=== PATIENT | female | born 2000 | race Caucasian/White ===

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

== ENCOUNTER 2019-03-04 03:53 | Emergency (ER) | payer OTHER ==
[~2019-03-04] VITALS: Ht 167.6 cm; Wt 99.3 kg
[~2019-03-04 03:53] MED LIST changes: +CEPH-443 PO
[2019-03-04 03:57] VITALS: BP 154/75; PULSE 72; RESP 18; Ht 167.6 cm; Wt 99.3 kg
--- NOTE | 2019-03-04 04:08 | ERD ---
ER Documentation Chief Complaint Chief Complaint lower abdominal pain x 4 days, hx of ovarian cyst HPI This is a 18-year-old female presents emergency department with complaints of right pelvic pain that started 4 days ago and got worse today. Stated that she has history of right ovarian cyst. Also stated that she is concerned because she had an unprotected sex 2 weeks ago. Patient is insisting to be checked for HIV. LMP: Stated that she is on it. G0, . Denies headache, head injury, loss of consciousness, dizziness, neck pain, neck stiffness, throat pain, difficulty swallowing, difficulty breathing lying flat, shoulder pain, chest pain, back pain, abdominal pain, nausea, vomiting, constipation, diarrhea, urinary symptoms, loss of bowel and bladder control, trauma, injury, falls, difficulty walking due to pain, numbness or tingling sensation, calf pain, recent travel, recent major surgery in the last 3 weeks, calf pain, recent long travel, recent exposure to any illness, recent antibiotic use in the last 3 months, fever, chills, seizures. Past medical history: Ovarian cyst. Surgical history: Appendectomy. Social: Denies smoking, use of alcoholic beverages, use of illegal drugs. ROS All systems reviewed and are negative except as per history of present illness. Medications Home Meds Active Scripts Ibuprofen* (Motrin*) 800 Mg Tab, 800 MG PO Q8 PRN for PAIN AND OR ELEVATED TEMP, #30 TAB Prov:OMER OBANDOAR F 03/04/19 Cephalexin* (Keflex*) 500 Mg Capsule, 500 MG PO TID for 7 Days, CAP Prov:PASILABANOMERAR F 03/04/19 Cephalexin* (Keflex*) 500 Mg Capsule, 500 MG PO BID for 7 Days, CAP Prov:YOON MCMILLAN PA-C 10/30/18 Ibuprofen* (Motrin*) 600 Mg Tab, 600 MG PO Q6H PRN for PAIN AND OR ELEVATED T EMP, #30 TAB Prov:GRISELDA BHAT PA-C 07/25/18 Amoxicillin* (Amoxicillin*) 500 Mg Cap, 500 MG PO BID for 10 Days, CAP Prov:GRISELDA BHAT PA-C 07/25/18 Metoclopramide* (Reglan*) 10 Mg Tablet, 10 MG PO Q6 PRN for NAUSEA AND/OR VOMITING, #20 TAB Prov:PASILABAN,KLAR F 05/14/18 Ibuprofen* (Motrin*) 800 Mg Tab, 800 MG PO Q6H PRN for PAIN AND OR ELEVATED TEMP, #30 TAB Prov:ANNETTE OBANDO 05/14/18 Amoxicillin/Potassium Clav (Amox-Clav 875-125 mg Tablet) 875-125 mg Tab, 1 TAB PO BID for 10 Days, #20 TAB Prov:ANNETTE OBANDO 05/14/18 Tramadol HCl (Tramadol HCl) 50 Mg Tablet, 50 MG PO Q4 PRN for PAIN, #20 TAB Prov:MATTEO KUMAR S. 04/12/17 Ciprofloxacin Hcl* (Ciprofloxacin Hcl*) 500 Mg Tablet, 500 MG PO BID for 5 Days, TAB Prov:STACYMATTEO S. 04/12/17 Reported Medications Guaifenesin (Guaiatussin) 100 Mg/5 Ml Syrup, 100 MG PO, ML 04/12/17 Bismuth Subsalicylate* (Pepto-Bismol*) 262 Mg/15 Ml Oral.susp, 15 ML PO Q6H PRN for CONFUSION, ML 04/12/17 Allergies Allergies: Coded Allergies: No Known Allergy (Unverified , 03/04/19) PMhx/Soc History of Surgery: Yes (APPENDECTOMY) Anesthesia Reaction: No Hx Neurological Disorder: No Hx Respiratory Disorders: No Hx Cardiac Disorders: No Hx Psychiatric Problems: No Hx Miscellaneous Medical Probl: No Hx Alcohol Use: No Hx Substance Use: No Hx Tobacco Use: Yes Physical Exam Vitals Physical Exam Const: No acute distress Head: Atraumatic Eyes: Normal Conjunctiva. ENT: Normal External Ears, Nose and Mouth. Neck: Full range of motion. No meningismus. Resp: Clear to auscultation bilaterally Cardio: Regular rate and rhythm, no murmurs Abd: Soft, non tender, non distended. Normal bowel sounds. Negative Chung sign. Negative Eddie sign (heel jar test). Negative psoas sign. Negative Rovsing sign. Able to jump 10 times without developing lower abdominal pain. No CVA tenderness. Ambulatory with steady gait and without pain to abdomen. Bilateral inguinal area: No swelling/discoloration/bulging/tenderness. Skin: No petechiae or rashes. Color appears normal for ethnicity. No skin tenting. No signs of severe dehydration. Back: No midline or flank tenderness Ext: No cyanosis, or edema Neur: Awake and alert. No neurological deficits. Psych: Normal Mood and Affect Results 24 hrs Laboratory Tests Test 03/04/19 04:20 03/05/19 04:20 03/13/19 09:25 White Blood Count 7.8 10^3/ul Red Blood Count 4.48 10^6/ul Hemoglobin 13.0 g/dl Hematocrit 38.0 % Mean Corpuscular 84.8 fl Volume Mean Corpuscular 29.0 pg Hemoglobin Mean Corpuscular 34.2 g/dl Hemoglobin Concent Red Cell Distribution 11.9 % Width Platelet Count 250 10^3/UL Mean Platelet Volume 11.1 fl Immature Granulocytes 0.300 % % Neutrophils % 60.2 % Lymphocytes % 32.8 % Monocytes % 5.8 % Eosinophils % 0.5 % Basophils % 0.4 % Nucleated Red Blood 0.0 /100WBC Cells % Immature Granulocytes 0.020 10^3/ul # Neutrophils # 4.7 10^3/ul Lymphocytes # 2.6 10^3/ul Monocytes # 0.5 10^3/ul Eosinophils # 0.0 10^3/ul Basophils # 0.0 10^3/ul Nucleated Red Blood 0.0 10^3/ul Cells # Urine Color YELLOW Urine Clarity SLIGHTLY CLOUDY Urine pH 5.0 Urine Specific [place] 1.019 Urine Ketones NEGATIVE mg/dL Urine Nitrite NEGATIVE mg/dL Urine Bilirubin NEGATIVE mg/dL Urine Urobilinogen NEGATIVE mg/dL Urine Leukocyte 1+ Kayla/ul Esterase Urine Microscopic RBC > 182 /HPF Urine Microscopic WBC 31 /HPF Urine Squamous FEW /HPF Epithelial Cells Urine Bacteria FEW /HPF Urine Hemoglobin 3+ mg/dL Urine Glucose NEGATIVE mg/dL Urine Total Protein 1+ mg/dl Urine Test NEGATIVE Sodium Level 143 mmol/L Potassium Level 4.0 mmol/L Chloride Level 109 mmol/L Carbon Dioxide Level 23 mmol/L Anion Gap 11 Blood Urea Nitrogen 8 mg/dl Creatinine 0.54 mg/dl Est Glomerular Filtrat > 60 mL/min Rate mL/min Glucose Level 99 mg/dl Calcium Level 9.3 mg/dl Total Bilirubin 0.3 mg/dl Direct Bilirubin 0.00 mg/dl Indirect Bilirubin 0.3 mg/dl Aspartate Amino 26 IU/L Transf (AST/SGOT) Alanine 25 IU/L Aminotransferase (ALT/ SGPT) Alkaline Phosphatase 52 IU/L Total Protein 7.7 g/dl Albumin 4.4 g/dl Globulin 3.30 g/dl Albumin/Globulin Ratio 1.33 Chlamydia trachomatis DETECTED RNA (TMA) Chlamydia/GC Comment SEE NOTE HIV-1 RNA, Quant <1.30 NOT DETECTED logcopies/mL HIV-1 RNA (PCR) <20 NOT DETECTED copies/ml HIV (1&2) Antibody Neisseria gonorrhoeae NOT DETECTED RNA (TMA) Miscellaneous Test Lab Scanned Report [facility] [id number] Current Medications Medications Dose Sig/Dane Start Time Status Last (Trade) Ordered Route PRN Stop Time Admin Dose Reason Admin Ketorolac 30 mg ONCE STAT 03/04/19 DC 03/04/19 Tromethamine IM 06:04 06:32 (Toradol) 03/04/19 06:05 Procedures/MDM Diagnostic tests: POC urine : Negative. Urinalysis: Reviewed. Culture urine: Sent. Gonorrhea and Chlamydia: Sent. HIV test: Sent. Blood works: Reviewed. Pelvic ultrasound: Unremarkable pelvic ultrasound. Treatment: Toradol. Re-evaluation: Denies chest pain, back pain, abdominal pain, pelvic pain, pelvic cramping, vaginal bleeding. Negative Chung sign. Negative Eddie sign (heel jar test). Negative psoas sign. Negative Rovsing sign. No CVA tenderness. Able to jump 5 times without developing lower abdominal pain. Ambulatory with steady gait and without pain to abdomen. Stated that she feels much better this time and that she is ready to go home. Differential diagnosis I have low suspicion for cholecystitis, appendicitis, diverticulitis, bowel obstruction, diverticulitis, ovarian torsion, ovarian cyst rupture, inguinal hernia, pyelonephritis, nephrolithiasis, obstructing kidney stones, septic stone. Final diagnosis: Ovarian cyst. Prescription: Motrin. Follow-up with PCP in the next 24-48 hours. Follow-up with phone operator in the next 24 to 48 hours. Come back here in the emergency department for any new symptoms or any worsening symptoms. All questions and concerns were answered. Patient and family members verbalized understanding and agreed with plan of care. Hemodynamically stable on discharge. Departure Diagnosis: Primary Impression: Acute pain in female pelvis Condition: Stable Additional Instructions: Follow-up with PCP in the next 24-48 hours. Follow-up with phone operator in the next 24 to 48 hours. Come back here in the emergency department for any new symptoms or any worsening symptoms. ANNETTE OBANDO Mar 04, 2019 04:08
[2019-03-04] MEDS ORDERED: KETOROLAC 30 MG INJ IM STA (06:04)
== END 2019-03-04 06:55 | disposition home or self-care (01) ==
LOC: FTE 03:53
DX: R10.2 Pelvic and perineal pain (principal); Z87.891 Personal history of nicotine dependence
CPT/HCPCS: 36415; 76830; 76856; 80053; 81001; 84703; 85025; 86703; 87086; 87536; 87591; 96372; J1885; Z7502